=== PATIENT | male | born 2000 | race Caucasian/White ===

== ENCOUNTER → 2023-06-17 12:00 | Outpatient (REF) | payer OTHER, SELFPAY | LOC: DHSLP 12:00 | PROVIDERS: ATTENDING PHYSICIAN Internal Medicine Critical Care Medicine; FAMILY PHYSICIAN Physician Assistant Medical | DX: F51.4 Sleep terrors [night terrors] (principal); G47.52 REM sleep behavior disorder | CPT/HCPCS: 95810 ==